=== PATIENT | male | born 1970 | race Caucasian/White ===

== ENCOUNTER → 2017-12-07 | Outpatient (CLI) | payer OTHER ==
[~2017-12-07] MED LIST: NOHOMEMEDICATIONS; NORFLEX100 MG PO; ULTRAM 50MG TAB50 MG PO
== END ==
LOC: MRI 09:25
DX: S83.242A Other tear of medial meniscus, current injury, left knee, initial encounter (principal); X58.XXXA Exposure to other specified factors, initial encounter; Y93.89 Activity, other specified; Y92.89 Other specified places as the place of occurrence of the external cause; Y99.8 Other external cause status